=== PATIENT | male | born 1990 | race American Indian/Alaskan Native ===

== ENCOUNTER 2017-07-20 14:03 | Emergency (ER) | payer OTHER ==
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
[2017-07-20] MEDS ORDERED: MOTRIN PO ONE (19:00)
[2017-07-20 23:01] VITALS: BP 148/86
== END 2017-07-20 19:35 | disposition home or self-care (01) ==
LOC: ED 14:03
DX: M54.5 Low back pain (principal); F17.200 Nicotine dependence, unspecified, uncomplicated; V89.2XXA Person injured in unspecified motor-vehicle accident, traffic, initial encounter; Y93.89 Activity, other specified; Y92.89 Other specified places as the place of occurrence of the external cause; Y99.8 Other external cause status
CPT/HCPCS: 99282